=== PATIENT | female | born 1960 | race Hispanic/Latino ===

== ENCOUNTER 2022-02-15 10:36 | Outpatient (CLI) | payer OTHER | END 2022-02-15 10:37 | disposition home or self-care (01) | LOC: RAD 10:36 | PROVIDERS: ATTEND Surgery | DX: V89.2XXA Person injured in unspecified motor-vehicle accident, traffic, initial encounter (principal); J98.11 Atelectasis | CPT/HCPCS: 71046 ==

== ENCOUNTER 2022-03-05 12:07 | Outpatient (CLI) | payer OTHER | END 2022-03-05 12:08 | disposition home or self-care (01) | LOC: SCSRAD 12:07 | PROVIDERS: ATTEND Physician Assistant | DX: S32.019S Unspecified fracture of first lumbar vertebra, sequela (principal); S32.029S Unspecified fracture of second lumbar vertebra, sequela; S32.039S Unspecified fracture of third lumbar vertebra, sequela; S22.009A Unspecified fracture of unspecified thoracic vertebra, initial encounter for closed fracture; M54.2 Cervicalgia | CPT/HCPCS: 72040; 72100 ==

== ENCOUNTER 2022-04-16 11:55 | Outpatient (CLI) | payer OTHER | END 2022-04-16 11:56 | disposition home or self-care (01) | LOC: SCSRAD 11:55 | PROVIDERS: ATTEND Physician Assistant | DX: S22.089D Unspecified fracture of T11-T12 vertebra, subsequent encounter for fracture with routine healing (principal); S32.029D Unspecified fracture of second lumbar vertebra, subsequent encounter for fracture with routine healing; S32.039D Unspecified fracture of third lumbar vertebra, subsequent encounter for fracture with routine healing; S32.019S Unspecified fracture of first lumbar vertebra, sequela | CPT/HCPCS: 72100 ==